=== PATIENT | female | born 1995 | race Caucasian/White ===

== ENCOUNTER 2021-03-25 12:40 | Emergency (ER) | payer OTHER ==
[~2021-03-25] VITALS: Ht 157.5 cm; Wt 124.5 kg
[2021-03-25] MEDS ORDERED: ZOLO100T PO (13:10)
[2021-03-25] MEDS ORDERED: ESSETAB4 PO (13:10)
[2021-03-25] MEDS ORDERED: ONDANSETRON 4MG/2ML VIAL IV ONE (15:00)
[2021-03-25] MEDS ORDERED: NS 1,000 ML IV ONE (15:00)
[2021-03-25 15:41] LABS: BASO % 0.2 % (0.0-1.0); EOS # 0.1 10^3/uL (0.0-0.5); HEMATOCRIT 44.2 % (36.0-47.0); HEMOGLOBIN 14.1 g/dl (12.0-15.5); LYMPH # 2.2 10^3/uL (1.5-5.0); LYMPH % 24.2 % (24.0-44.0); MEAN CORPUSCULAR HEMOGLOBIN 27.3 pg (27.0-33.0); MEAN CORPUSCULAR HGB CONC 31.9 g/dl (32.0-36.5); MEAN CORPUSCULAR VOLUME 85.5 fl (80.0-96.0); MONO # 0.4 10^3/uL (0.0-0.8); MONO % 4.5 % (2.0-8.0); NEUTROPHILS # 6.5 10^3/uL (1.5-8.5); NEUTROPHILS % 69.9 % (36.0-66.0); PLATELET COUNT, AUTOMATED 317 10^3/uL (150-450); RED BLOOD COUNT 5.17 10^6/uL (4.00-5.40); WHITE BLOOD COUNT 9.2 10^3/uL (4.0-10.0)
[2021-03-25] MEDS ORDERED: MECLIZINE 25 MG TABLET PO ONE (16:10)
[2021-03-25 16:34] LABS: BILIRUBIN,DIRECT 0.2 MG/DL (0.0-0.2); BILIRUBIN,TOTAL 0.6 MG/DL (0.2-1.0); THYROID STIMULATING HORMONE 1.04 uIU/ML (0.358-3.740)
[2021-03-25] MEDS ORDERED: CIPR-249 PO (18:34)
[2021-03-25] MEDS ORDERED: MECL1TAB31 PO (18:34)
[2021-03-25] MEDS ORDERED: ONDA4TAB6 PO (18:36)
[2021-03-25 18:58] VITALS: BP 128/79
== END 2021-03-25 19:10 | disposition home or self-care (01) ==
LOC: M ED 12:40
DX: N39.0 Urinary tract infection, site not specified (principal); R42 Dizziness and giddiness; R11.2 Nausea with vomiting, unspecified; R06.02 Shortness of breath; J45.909 Unspecified asthma, uncomplicated; K21.9 Gastro-esophageal reflux disease without esophagitis; F32.9 Major depressive disorder, single episode, unspecified; Z88.8 Allergy status to other drugs, medicaments and biological substances; Z79.899 Other long term (current) drug therapy
CPT/HCPCS: 80047; 80076; 81001; 83690; 84443; 84702; 85025; 87088; 87186; 87798; 96361; 96374; 99284; J2405